=== PATIENT | male | born 1990 | race Caucasian/White ===

== ENCOUNTER 2017-01-22 15:25 | Emergency (ER) | payer OTHER ==
[~2017-01-22] VITALS: Ht 170.2 cm; Wt 70.0 kg
[2017-01-22 15:45] VITALS: BP 128/70; PULSE 103; RESP 16; TEMP 98; O2SAT 98
[2017-01-22] MEDS ORDERED: ARIP1TAB5 PO (15:54)
[2017-01-22] MEDS ORDERED: SODIUM CHLOR 0.9% 1000 ML INJ 1,000 ML IV ONE (15:56)
[2017-01-22] MEDS ORDERED: SODIUM CHLORIDE 0.9% FLUSH 5 ML FLUSH IVF PRN (16:00)
[2017-01-22] MEDS ORDERED: ACTIVATED CHARCOAL LIQUID 25 GM/120 ML BTL PO/NG ONE (16:00)
[2017-01-22] MEDS ORDERED: LORazepam 2 MG/ML VIAL IVP ONE (16:00)
[2017-01-22 16:24] LABS: AUTOMATED NEUTROPHIL # 4.4 TH/MM3 (1.8-7.7); BASOPHIL # 0.1 TH/MM3 (0-0.2); EOSINOPHIL # 0.2 TH/MM3 (0-0.4); HEMATOCRIT 42.7 % (39.0-51.0); HEMO FLAGS DIFF FINAL; LYMPH % 38.7 % (9.0-44.0); LYMPHOCYTE # 3.4 TH/MM3 (1.0-4.8); MEAN CELL VOLUME 87.4 FL (80.0-100.0); MEAN CORPUSCULAR HGB CONC 34.3 % (32.0-36.0); MONO % 7.8 % (0.0-8.0); NEUT % 50.5 % (16.0-70.0); PLATELET COUNT 328 TH/MM3 (150-450); RED BLOOD COUNT 4.89 MIL/MM3 (4.50-5.90); RED CELL DISTRIBUTION WIDTH 13.7 % (11.6-17.2); WHITE BLOOD COUNT 8.8 TH/MM3 (4.0-11.0)
--- NOTE | 2017-01-22 16:24 | PD ---
HPI Chief Complaint: Medical Clearance Time Seen by Provider: 15:45 Travel History International Travel<30 days: No Contact w/Intl Traveler<30days: No Traveled to known affect area: No History of Present Illness HPI To 26-year-old man who presents emergent department complaining that he ate a ball of cocaine. He states that about 15-20 minutes prior to arrival, will all running from the police, he took a fall powder cocaine L, approximately 3 ng, and swallowed it. It was not any wrapper when he swallowed it. He has no complaints now. He otherwise had been feeling well. History Past Medical History Narrative Medical Schizoaffective disorder Tetanus Vaccination: < 5 Years Influenza Vaccination: No Social History Alcohol Use: Yes (SOCIALLY) Tobacco Use: Yes (1 PPD) Allergies-Medications (Allergen,Severity, Reaction): Coded Allergies: No Known Allergies (Unverified , 01/22/17) Reported Meds & Prescriptions Reported Meds & Active Scripts Active Reported Abilify (Aripiprazole) 10 Mg Tab 10 Mg PO DAILY Review of Systems Except as stated in HPI: all other systems reviewed are Neg Physical Exam Narrative GENERAL: Well-appearing 26 year-old man, no acute distress. SKIN: Warm and dry. HEAD: Atraumatic. Normocephalic. EYES: Pupils equal and round. No scleral icterus. No injection or drainage. ENT: No nasal bleeding or discharge. Mucous membranes pink and moist. NECK: Trachea midline. No JVD. CARDIOVASCULAR: Heart rate is a little bit rapid. Regular. No murmurs. RESPIRATORY: No accessory muscle use. Clear to auscultation. Breath sounds equal bilaterally. GASTROINTESTINAL: Abdomen soft, non-tender, nondistended. Hepatic and splenic margins not palpable. MUSCULOSKELETAL: No obvious deformities. No edema. NEUROLOGICAL: Awake and alert. No obvious cranial nerve deficits. Motor grossly within normal limits. Normal speech. PSYCHIATRIC: Appropriate mood and affect; insight and judgment normal. Data Data Last Documented VS Vital Signs Date Time Temp Pulse Resp B/P Pulse Ox O2 Delivery O2 Flow Rate FiO2 01/22/17 17:10 100 14 114/63 98 01/22/17 15:45 98.0 Orders Electrocardiogram (01/22/17 15:56) Complete Blood Count With Diff (01/22/17 15:56) Comprehensive Metabolic Panel (01/22/17 15:56) Iv Access Insert/Monitor (01/22/17 15:56) Ecg Monitoring (01/22/17 15:56) Oximetry (01/22/17 15:56) Charcoal Activated Liq (Actidose-Aqua Li (01/22/17 16:00) Lorazepam Inj (Ativan Inj) (01/22/17 16:00) Sodium Chloride 0.9% Flush (Ns Flush) (01/22/17 16:00) Sodium Chlor 0.9% 1000 Ml Inj (Ns 1000 M (01/22/17 15:56) Call Poison Control (01/22/17 15:56) Alcohol (Ethanol) (01/22/17 15:56) Salicylates (Aspirin) (01/22/17 15:56) Tylenol (Acetaminophen) (01/22/17 15:56) Ondansetron Inj (Zofran Inj) (01/22/17 16:30) Labs Laboratory Tests Test 01/22/17 16:05 White Blood Count 8.8 TH/MM3 Red Blood Count 4.89 MIL/MM3 Hemoglobin 14.7 GM/DL Hematocrit 42.7 % Mean Corpuscular Volume 87.4 FL Mean Corpuscular Hemoglobin 30.0 PG Mean Corpuscular Hemoglobin 34.3 % Concent Red Cell Distribution Width 13.7 % Platelet Count 328 TH/MM3 Mean Platelet Volume 7.2 FL Neutrophils (%) (Auto) 50.5 % Lymphocytes (%) (Auto) 38.7 % Monocytes (%) (Auto) 7.8 % Eosinophils (%) (Auto) 2.0 % Basophils (%) (Auto) 1.0 % Neutrophils # (Auto) 4.4 TH/MM3 Lymphocytes # (Auto) 3.4 TH/MM3 Monocytes # (Auto) 0.7 TH/MM3 Eosinophils # (Auto) 0.2 TH/MM3 Basophils # (Auto) 0.1 TH/MM3 CBC Comment DIFF FINAL Differential Comment Sodium Level 136 MEQ/L Potassium Level 3.6 MEQ/L Chloride Level 103 MEQ/L Carbon Dioxide Level 24.3 MEQ/L Anion Gap 9 MEQ/L Blood Urea Nitrogen 9 MG/DL Creatinine 1.02 MG/DL Estimat Glomerular Filtration 88 ML/MIN Rate Random Glucose 106 MG/DL Calcium Level 9.0 MG/DL Total Bilirubin 0.1 MG/DL Aspartate Amino Transf 18 U/L (AST/SGOT) Alanine Aminotransferase 19 U/L (ALT/SGPT) Alkaline Phosphatase 84 U/L Total Protein 7.7 GM/DL Albumin 3.7 GM/DL Salicylates Level 3.1 MG/DL Acetaminophen Level LESS THAN 2.0 MCG/ML Ethyl Alcohol Level LESS THAN 3 MG/DL [facility] Medical Decision Making Medical Screen Exam Complete: Yes Emergency Medical Condition: Yes Interpretation(s) My review of EKG: Normal sinus rhythm at a rate of 93, normal axis, normal intervals, anterior precordial ST elevations consistent with early repolarization. LABS: CBC unremarkable. CMP unremarkable. Salicylates negative Acetaminophen negative Alcohol negative Differential Diagnosis Sympathomimetic poisoning, other coingestions, dehydration, intoxication, other Narrative Course Medical decision making 26 year-old man, intentional overdose on cocaine. We'll give IV fluids, benzodiazepines, check labs, check EKG, consult poison control. Diagnosis Primary Impression: Cocaine adverse reaction Qualified Code: T40.5X5A - Cocaine adverse reaction, initial encounter Additional Instructions: Patient is medically clear. Avoid illicit drug use. Med/Other Pt SpecificInfo: No Change to Meds Disposition: 01 DISCHARGE HOME Condition: Stable Colt Lakhani MD Jan 22, 2017 16:24
[2017-01-22] MEDS ORDERED: ONDANSETRON HCL 4 MG/2 ML VIAL IV ONE (16:30)
[2017-01-22 16:32] VITALS: O2SAT 98
[2017-01-22 17:06] LABS: ALKALINE PHOSPHATASE 84 U/L (45-117); ALT (GPT) 19 U/L (12-78); ANION GAP 9 MEQ/L (5-15); AST (GOT) 18 U/L (15-37); BICARBONATE 24.3 MEQ/L (21.0-32.0); BLOOD UREA NITROGEN 9 MG/DL (7-18); CHLORIDE 103 MEQ/L (98-107); GLOMERULAR FILTRATION RATE 88 ML/MIN (>89); POTASSIUM 3.6 MEQ/L (3.5-5.1); SODIUM (NA) 136 MEQ/L (136-145); TOTAL BILIRUBIN ADULT 0.1 MG/DL (0.2-1.0)
[2017-01-22 17:10] VITALS: BP 114/63; PULSE 100; RESP 14; O2SAT 98
[2017-01-22 17:15] LABS: ACETAMINOPHEN LESS THAN 2.0 MCG/ML (10.0-30.0)
--- NOTE | 2017-01-22 22:49 | EKG ---
Date Performed: 01/22/2017 Time Performed: 16:17:08 PTAGE: 26 years EKG: Sinus rhythm EARLY REPOLARIZATION BORDERLINE ECG NO PREVIOUS TRACING DOCTOR: Tk Landin Interpretating Date/Time 01/22/2017 22:48:10
== END 2017-01-22 19:21 | disposition home or self-care (01) ==
LOC: NEPC 15:25
DX: T40.5X5A Adverse effect of cocaine, initial encounter (principal)
CPT/HCPCS: 80053; 80320; 85025; 93005; 96374; 96375; 99283; J2060; J2405; J7030; 80329; G0480